=== PATIENT | male | born 1955 | race African-American/Black ===

== ENCOUNTER 2016-12-15 05:47 | Day surgery (SDC) | payer BC ==
[2016-12-13 16:18] VITALS: BMI 34.8
[2016-12-15] MEDS ORDERED: oxyCODONE HCL 10 MG SUSTAINED ACTING TABLET PO ONE (07:31)
--- NOTE | 2016-12-15 07:38 | HP ---
History & Physical Update - History History: No Change - Physical Physical: No Change - Assessment Assessment: No Change - Plan Plan: No Change
[2016-12-15] MEDS ORDERED: MIDAZOLAM HCL 2 MG/2 ML SINGLE DOSE VIAL ONE ×2 (07:55→10:30)
[2016-12-15] MEDS ORDERED: methylPREDNISolone ACET (DEPO) 40 MG/1 ML VIAL ONE (07:57)
[2016-12-15] MEDS ORDERED: THROMBIN (BOVINE) 5,000 UNIT VIAL TP ONE (07:57)
[2016-12-15] MEDS ORDERED: LIDOCAINE 1%-EPI 1:100,000 30 ML MDV IJ ONE (07:57)
[2016-12-15] MEDS ORDERED: BUPIVACAINE HCL/PF 2.5 MG/ML - 30 ML VIAL IJ ONE (07:57)
[2016-12-15] MEDS ORDERED: ePHEDrine SULFATE 50 MG/1 ML AMPULE ONE (09:03)
[2016-12-15] MEDS ORDERED: ceFAZolin SODIUM 1 GM VIAL ONE (10:29)
[2016-12-15] MEDS ORDERED: KETOROLAC TROMETHAMINE 30 MG/1 ML VIAL ONE (10:33)
[2016-12-15] MEDS ORDERED: GUM MASTIC/STORAX/MSAL/ALCOHOL 1 DRP DROPSBTL MC ONE (11:03)
[2016-12-15] MEDS ORDERED: LIDOCAINE HCL 1%, 10 MG/ML (20ML VIAL) ONE (11:03)
--- NOTE | 2016-12-15 11:34 | OP ---
Operative Note - Note: Operative Date: 12/15/16 Pre-Operative Diagnosis: spinal stenosis Operation: laminectomy of L4-L5 with dural tear repair, closed primarily Surgeon: Kuldip Lord Epoxy Coatings Installer: Mable Chaudhary Anesthesiologist/CUSTOMER ACCOUNT EXECUTIVE: Juventino Sherman Anesthesia: Spinal Estimated Blood Loss (mls): 20 Fluid Volume Replaced (mls): 1,000 Operative Report Dictated: Yes
--- NOTE | 2016-12-15 11:47 | SURG ---
Surgery Adjuster Arbitrator Note Adjuster Arbitrator: Mable Chaudhary PA-C Date of Service: 12/15/16 Diagnosis: spinal stenosis Procedure: laminectomy of L4-L5, repair of dural tear, primarily I was present for the entirety of the operative procedure. For further detail, please refer to operative report. Visit type - Case Type Case Type: Scheduled Admission - Emergency Emergency Visit: No - New patient This patient is new to me today: Yes Date on this admission: 12/15/16 - Critical Care Critical Care patient: No
[2016-12-15] MEDS ORDERED: ONDANSETRON 4 MG/2 ML VIAL IVPUSH PRN (12:06)
[2016-12-15] MEDS ORDERED: oxyCODONE HCL 5 MG TABLET PO PRN (12:10)
[2016-12-15] MEDS ORDERED: PROMETHAZINE HCL 25 MG/1 ML VIAL IVPUSH PRN (12:20)
[2016-12-15] MEDS ORDERED: ACETAMINOPHEN 1000 MG/100 ML VIAL (NON FORMULARY) IVPB ONE (13:15)
[2016-12-15 15:16] VITALS: BP 136/74; PULSE 72
[2016-12-15 16:52] VITALS: TEMP 97.9
--- NOTE | 2016-12-16 12:41 | EKG ---
Test Reason : Blood Pressure : / mmHG Vent. Rate : 074 BPM Atrial Rate : 074 BPM P-R Int : 140 ms QRS Dur : 084 ms QT Int : 378 ms P-R-T Axes : 063 005 030 degrees QTc Int : 419 ms NORMAL SINUS RHYTHM MINIMAL VOLTAGE CRITERIA FOR LVH, MAY BE NORMAL VARIANT NONSPECIFIC T WAVE ABNORMALITY NO PREVIOUS ECGS AVAILABLE Confirmed by MD FLORES MARJORY ([id number]) on 12/16/2016 12:40:47 PM Referred By: Kuldip Lord Confirmed By:JASPAL FLORES MD
--- NOTE | 2017-01-12 10:09 | OP ---
DATE OF OPERATION: 12/15/2016 PREOPERATIVE DIAGNOSIS: 1. Spinal stenosis. 2. Synovial cyst. POSTOPERATIVE DIAGNOSIS: 1. Spinal stenosis. 2. Synovial cyst. PROCEDURE PERFORMED: 1. Removal of synovial cyst. 2. Laminectomy. 3. Dural tear repair. SURGEON: Kuldip Lord MD EGG GATHERER: CATALINO Calzada ESTIMATED BLOOD LOSS: 20 mL. INTRAVENOUS FLUIDS: Per Anesthesia. ANESTHESIA: Spinal. COMPLICATIONS: Dural tear repaired with 5-0 Nurolon suture. INDICATIONS FOR SURGERY: The patient is a 61-year-old gentleman who has been suffering from pain from his back down his right leg. X-rays and MRI were completed, which noted that he had a synovial cyst at L4-L5. He had gone through an exhaustive course of treatment for this which included medications, physical therapy, as well as injections. Unfortunately, his pain continued to persist despite all this. At this point, risks, benefits, and alternatives were discussed, and the patient consented to surgery. OPERATIVE NOTE: Patient was brought to the operating room by the anesthesia staff. After appropriate patient identification was performed, spinal anesthesia was given. He was placed prone onto the Mariusz frame. The patient was able to position himself to avoid all bony prominences. Two needles were placed into his back to madhav off the L4-L5 level. An x-ray was taken to confirm the needles track. The needle was removed, and 10 mL of lidocaine with epinephrine was injected into his back. At this time, his back was prepped and draped in a sterile manner. At this point, a time-out was completed. An incision was made from the top of L4 down to the bottom of L5. Dissection was carried down to the fascia. Fascia was split open at this time. An appropriate retractor was then placed in. A spinal needle was placed onto the L4 lamina. The needle was removed, and a microscope was brought in. The interspinous ligament at L4-L5 was removed. Portions of the L4 and L5 spinous processes were removed. A george was used to remove the lamina. The flavum was peeled off. While peeling off the flavum, synovial cyst was noted. While taking off the synovial cyst, dural tear was noted. It was closed with a 5-0 Nurolon suture in a watertight fashion. A complete decompression was performed, such that, by the end of the procedure, the L5 nerve root appeared to be well decompressed. All the bleeding was well controlled at this time. Steroids were placed over the nerve root. Floseal was placed over that. The fascia was closed with a No. 1 Vicryl suture. The subcutaneous tissues were closed with 2-0 Vicryl suture. Skin was closed with 3-0 Monocryl suture. Dermabond was applied. Steri-Strips were applied, and sterile dressings applied. Patient was placed supine on the OR bed and brought to the PACU in stable condition. KULDIP LORD M.D. [id number]
== END 2016-12-15 15:00 | disposition home or self-care (01) ==
LOC: FASU 05:47
PROVIDERS: ATTEND Orthopaedic Surgery Orthopaedic Surgery of the Spine
PROC: 00QT0ZZ Repair Spinal Meninges, Open Approach (ICD-10-PCS; 2016-12-15)
PROC: 0SB00ZZ Excision of Lumbar Vertebral Joint, Open Approach (ICD-10-PCS; 2016-12-15)
PROC: 01NB0ZZ Release Lumbar Nerve, Open Approach (ICD-10-PCS; principal; 2016-12-15 09:10)
DX: M48.06 Spinal stenosis, lumbar region (principal); M71.38 Other bursal cyst, other site; G96.11 Dural tear
CPT/HCPCS: 72100-TC; 76000-TC; 93005; 94760

== ENCOUNTER 2018-01-15 07:33 | Day surgery (SDC) | payer BC | END 2018-01-15 17:30 | disposition home or self-care (01) | LOC: JASU-SURG 07:33 | PROC: 0T5C8ZZ Destruction of Bladder Neck, Via Natural or Artificial Opening Endoscopic (ICD-10-PCS; principal; 2018-01-15) | CPT/HCPCS: 94760 ==